=== PATIENT | female | born 1970 | race Caucasian/White ===

== ENCOUNTER 2024-03-19 14:56 | Emergency (ER) | payer OTHER ==
[~2024-03-19] VITALS: Ht 160 cm; Wt 104.5 kg
[2024-03-19 15:03] VITALS: BP 149/96; TEMP 98.3
[2024-03-19] MEDS ORDERED: FLEXERIL 1010 MG/TAB PO (17:18)
[2024-03-19 17:26] VITALS: PULSE 91
== END 2024-03-19 17:26 | disposition home or self-care (01) ==
LOC: COL.ER 14:56
DX: M25.562 Pain in left knee (principal)